=== PATIENT | male | born 1980 | race African-American/Black ===

== ENCOUNTER 2016-10-15 21:31 | Emergency (ER) | payer OTHER | END 2016-10-15 22:37 | disposition home or self-care (01) | LOC: FER 21:31 | DX: L25.9 Unspecified contact dermatitis, unspecified cause (principal); I10 Essential (primary) hypertension; F17.200 Nicotine dependence, unspecified, uncomplicated; Z79.899 Other long term (current) drug therapy | CPT/HCPCS: J2930 ==